=== PATIENT | male | born 1955 | race Asian ===

== ENCOUNTER 2019-01-25 20:09 | Emergency (ER) | payer SELFPAY ==
[~2019-01-25 20:09] MED LIST: Iopamidol 300 61% 100 ML VIAL FS ONE
[2019-01-25 20:48] LABS: #Basophils 0.1 thou/uL (0.0-0.2); #Eosinphils 0.4 thou/uL (0.0-0.7); #Lymphocytes 1.8 thou/uL (1.20-3.40); #Monocytes 0.7 thou/uL (0.11-0.59); #Neutrophils 2.6 thou/uL (1.40-6.50); %Basophils 1.7 % (0.0-1.0); %Eosinophils 6.8 % (0.0-10.0); %Monocytes 11.8 % (0.0-10.0); %Neutrophils 47.7 % (42.0-75.0); Hemoglobin 13.4 g/dL (14.0-18.0); Mean Corpuscular Hemoglobin 31.4 pg (27.0-31.0); Mean Corpuscular Volume 95.2 fL (78.0-98.0); Platelet Count 259 thou/uL (130-400); RBC Distribution Width 11.7 % (11.5-14.5); Red Blood Cell (RBC) Count 4.28 mill/uL (4.70-6.10); White Blood Cell (WBC) Count 5.5 thou/uL (4.8-10.8)
[2019-01-25 21:00] LABS: Anion Gap 13 mmol/L (10-20); BUN (Urea Nitrogen) 21 mg/dL (8.4-25.7); Calc. Creatinine Clearance 0 mL/min (70-130); Calcium 9.3 mg/dL (7.8-10.44); Carbon Dioxide 28 mmol/L (23-31); Chloride 104 mmol/L (98-107); Estimated GFR-MDRD 60; Glucose 115 mg/dL (80-115); Potassium 3.8 mmol/L (3.5-5.1); Sodium 141 mmol/L (136-145)
[2019-01-25] MEDS ORDERED: traMADol HCl 50 MG TAB ONE (22:02)
--- NOTE | 2019-01-25 23:51 | CT ---
CT CHEST WITH CONTRAST CT THORACIC SPINE WITH CONTRAST: History: Trauma. Injury against a toilet. Fall. Comparison: None. FINDINGS: There is a small focus of peripheral scarring within the posterior segment right upper lobe abutting the pleura. No focal airspace consolidation, pneumothorax, or effusion. Visualized portions of the clavicle are i ntact. Minimally displaced left posterolateral 9th rib fracture approximately one-half shaft width. N o 8th or 10th rib fracture is appreciated. Transverse processes are intact. No significant extrapleur al hematoma. Spine is without fracture. Sternum and manubrium are intact. Limited evaluation of the upper abdomen is unremarkable. IMPRESSION: Minimally displaced left posterolateral 9th rib fracture without significant adjacent extrahematoma. No pneumothorax. POS: [facility]
== END 2019-01-25 22:03 | disposition home or self-care (01) ==
LOC: SCSER 20:09
DX: S22.32XA Fracture of one rib, left side, initial encounter for closed fracture (principal); W19.XXXA Unspecified fall, initial encounter
CPT/HCPCS: 36415; 71260; 80048; 85025; Q9967